=== PATIENT | female | born 1995 | race Caucasian/White ===

== ENCOUNTER 2021-06-30 19:15 | Emergency (ER) | payer MEDICAID ==
[2021-06-30] MEDS ORDERED: GI Cocktail Oral Solution 30 ML PO ONE (20:51)
== END 2021-06-30 22:21 | disposition home or self-care (01) ==
LOC: LB.ED 19:15
DX: R07.9 Chest pain, unspecified (principal)
CPT/HCPCS: 36415; 71046; 80053; 81025; 82150; 83690; 84484; 85025; 85379; 93005; 99285-25; A9270-GY